=== PATIENT | male | born 1955 | race Caucasian/White ===

== ENCOUNTER 2016-07-19 06:45 | Outpatient (CLI) ==
[2016-07-19 06:56] LABS: BASOPHILS # (AUTO) 0.1 K/uL (0-0.2); BASOPHILS % (AUTO) 1.1 % (0.0-3.0); EOSINOPHILS # (AUTO) 0.1 K/ul (0.0-0.7); HEMATOCRIT 47.2 % (42.0-52.0); HEMOGLOBIN 16.6 g/dl (14.0-18.0); IMMATURE GRANULOCYTE % (AUTO) 0.7 % (0.0-5.0); LYMPHOCYTES # (AUTO) 1.8 K/uL (0.60-3.4); LYMPHOCYTES % (AUTO) 25.4 (10.0-50.0); MEAN CORPUSCULAR HEMOGLOBIN 30.7 pg (27.0-31.0); MEAN CORPUSCULAR HGB CONC 35.2 (31.8-35.4); MEAN CORPUSCULAR VOLUME 87.2 fl (80.0-94.0); MONOCYTES # (AUTO) 0.7 K/uL (0.4-2.0); MONOCYTES % (AUTO) 9.1 (0-10); NEUTROPHILS # (AUTO) 4.5 K/ul (2.0-6.9); NEUTROPHILS % (AUTO) 62.7; PLATELET COUNT 218 10^3/uL (140-440); RED BLOOD COUNT 5.41 10^6/ul (4.70-6.10); WHITE BLOOD COUNT 7.23 K/ul (4.2-10.2)
[2016-07-19 07:15] LABS: ALBUMIN 3.8 g/dL (3.4-5.0); ALBUMIN/GLOBULIN RATIO 1.52; ANION GAP 13.2; BILIRUBIN,TOTAL 1.68 mg/dL (0.00-1.20); BUN/CREATININE RATIO 19.78; CALCIUM 9.3 mg/dL (8.2-10.2); CHOL/HDL RATIO 3.8 (4.5-6.4); CREATININE 0.91 mg/dL (0.60-1.10); POTASSIUM 4.2 mmol/L (3.5-5.1); TOTAL PROTEIN 6.3 g/dL (6.4-8.2)
== END 2016-07-19 06:46 | disposition home or self-care (01) ==
LOC: LAB 06:45
PROVIDERS: ATTEND Internal Medicine
DX: Z12.11 Encounter for screening for malignant neoplasm of colon (principal); Z12.5 Encounter for screening for malignant neoplasm of prostate
CPT/HCPCS: 36415; 80053; 80061; 84153; 85025

== ENCOUNTER 2016-09-15 15:32 | Outpatient (CLI) | END 2016-09-15 15:33 | disposition home or self-care (01) | LOC: LAB 15:32 | PROVIDERS: ATTEND Internal Medicine | DX: Z11.59 Encounter for screening for other viral diseases (principal) | CPT/HCPCS: 36415; 86803 ==